=== PATIENT | female | born 1995 | race African-American/Black ===

== ENCOUNTER 2017-10-06 08:39 | Emergency (ER) | payer MEDICAID ==
[~2017-10-06] VITALS: Ht 160 cm; Wt 68.5 kg
[2017-10-06 08:59] VITALS: BP 138/83
[2017-10-06] MEDS ORDERED: FLUC150T PO (09:17)
--- NOTE | 2017-10-06 09:17 | PHYS DOC ---
Past History Past Medical History: No Pertinent History Past Surgical History: No Surgical History Alcohol Use: None Drug Use: None Adult General Chief Complaint Chief Complaint: VAGINAL PROBLEM HPI HPI Patient is a 22-year-old female who presents here today requesting an STD check. Patient reports she's had vaginal discharge with burning itching sensation. Patient thinks that she might have a yeast infection which is wants double check that she'll have an STD. Patient has any fevers shakes chills nausea vomiting diarrhea chest pain terns breath cough cold or rhinorrhea. Patient has any abdominal pain chest pain. Patient has a dysuria frequency or urgency. Review of systems: Constitutional: Denies fever or chills Eyes: Denies change in visual acuity, redness, or eye pain HENT: Denies nasal congestion or sore throat Respiratory: Denies cough or shortness of breath All other systems were reviewed and found to be within normal limits, except as documented in this note. Physical exam: Constitutional: Well developed, well nourished, no acute distress, non-toxic appearance. HENT: Normocephalic, atraumatic, bilateral external ears normal, nose normal. Eyes: PERRLA, EOMI, conjunctiva normal, no discharge. Neck: Normal range of motion, no tenderness, supple, no stridor. Cardiovascular: Heart rate regular rhythm, Lungs & Thorax: Bilateral breath sounds clear to auscultation Abdomen: No abdominal distention. Skin: Warm, dry, no erythema, no rash. Back: Normal spinal curvature Extremities: No tenderness, no cyanosis, no clubbing, ROM intact, no edema. Neurologic: Alert and oriented X 3, normal motor function, normal sensory function, no focal deficits noted. Psychologic: Affect normal, judgement normal, mood normal. Patient's ER physical exam was most unremarkable: Patient with a yeast like discharge in her vaginal canal. Patient has some irritation and redness on her labia minora and majora. Patient services not friable. No yellow discharge. No cervical motion tenderness no adnexal masses. Assessment and plan: 1. . 22-year-old female who presents here today with likely yeast infection. Cultures were obtained for GC chlamydia Trichomonas or Gardnerella. Patient be given a prescription for Diflucan. Current Patient Data Vital Signs Vital Signs Date Time Temp Pulse Resp B/P (MAP) Pulse Ox O2 Delivery O2 Flow Rate FiO2 11/25/17 08:59 98.4 106 16 97 Room Air EKG EKG [] Radiology/Procedures Radiology/Procedures [] Course & Med Decision Making Course & Med Decision Making Pertinent Labs and Imaging studies reviewed. (See chart for details) [] Dragon Disclaimer Dragon Disclaimer This electronic medical record was generated, in whole or in part, using a voice recognition dictation system. Departure Departure: Impression: Primary Impression: Vaginitis and vulvovaginitis Disposition: HOME, SELF-CARE Condition: IMPROVED Referrals: NON,STAFF (PCP) Patient Instructions: Vaginitis, Monilial Scripts Fluconazole (DIFLUCAN) 150 Mg Tablet 1 TAB PO ONCE, #1 TAB 1 Refill Prov: RAFA BOJORQUEZ MD 10/06/17 RAFA BOJORQUEZ MD Oct 06, 2017 09:17
[2017-10-08 14:09] LABS: CHLAMYDIA PROBE Negative (Negative)
== END 2017-10-06 09:40 | disposition home or self-care (01) ==
LOC: ER 08:39
DX: N76.0 Acute vaginitis (principal)
CPT/HCPCS: 36415; 81025; 87491; 87591; 99284; Q0111